=== PATIENT | female | born 2000 | race Caucasian/White ===

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

== ENCOUNTER 2018-08-31 22:28 | Emergency (ER) | payer BC, OTHER ==
[2018-09-01] MEDS ORDERED: Diazepam TAB(*) 5 MG PO ONE (00:35)
[2018-09-01] MEDS ORDERED: predniSONE TAB* 20 MG PO ONE (01:15)
--- NOTE | 2018-09-01 01:18 | ED ---
Back Pain - HPI Summary HPI Summary: Patient complains of bilateral hip pain, lower back pain with radiation down into bilateral legs 2 weeks worsening today. Denies known trauma. Pain is intermittent, worse with moving. Patient has tried Tylenol, ibuprofen, tramadol , Flexeril, meloxicam without relief of symptoms. History of chronic back pain , anxiety, depression, fibromyalgia. Denies fever, cough, sore throat, CP, SOB , N/V/D, abdominal pain, change in urine, change in BM. Patient has appointment with PCP for evaluation of these symptoms on 09/14 but could not wait. - History of Current Complaint Chief Complaint: EDHipPelvisInjury Stated Complaint: BACK/HIP/LEG PAIN, DIFFICULTY BREATHING PER PT Time Seen by Provider: 09/01/18 00:17 Hx Obtained From: Patient, Family/Law Examiner Hx Last Menstrual Period: started 3 days ago Onset/Duration: Gradual Onset, Lasting Weeks Onset/Duration: Started Weeks Ago Timing: Intermittent Severity Initially: Moderate Severity Currently: Moderate Pain Intensity: 7 Pain Scale Used: 0-10 Numeric Character: Dull, Aching, Throbbing Aggravating Symptom(s): Movement Alleviating Symptom(s): Rest, Position Associated Signs And Symptoms: Positive: Negative - Allergies/Home Medications Allergies/Adverse Reactions: Allergies Allergy/AdvReac Type Severity Reaction Status Date / Time adhesive tape Allergy See Comment Verified 12/08/17 13:02 azithromycin Allergy Hives Verified 12/08/17 13:02 [From Zithromax Z-Cooper] Penicillins Allergy Hives Verified 12/08/17 13:02 Home Medications: Home Medications Acetaminophen [Tylenol Extra Strength] 1,000 mg PO 09/01/18 [History] Ibuprofen TAB* [Advil TAB*] 800 mg PO PRN 09/01/18 [History] Pregabalin CAP(*) [Lyrica CAP(*)] 100 mg PO BID 09/01/18 [History Confirmed 07/16] PMH/Surg Hx/FS Hx/Imm Hx Endocrine/Hematology History: Denies: Hx Diabetes, Hx Thyroid Disease Cardiovascular History: Denies: Hx Hypertension, Hx Pacemaker/ICD Respiratory History: Denies: Hx Asthma, Hx Chronic Obstructive Pulmonary Disease (COPD) GI History: Denies: Hx Ulcer Sensory History: Denies: Hx Legally Blind Opthamlomology History: Denies: Hx Eye Prosthesis EENT History: Denies: Hx Deafness Neurological History: Denies: Hx Dementia Psychiatric History: Denies: Hx Panic Disorder - Surgical History Surgery Procedure, Year, and Place: T&A - Immunization History Immunizations Up to Date: Yes Infectious Disease History: No Infectious Disease History: Denies: Hx Clostridium Difficile, Hx Hepatitis, Hx Human Immunodeficiency Virus (HIV), Hx of Known/Suspected MRSA, Hx Shingles, Hx Tuberculosis, Hx Known/ Suspected VRE, Hx Known/Suspected VRSA, History Other Infectious Disease, Traveled Outside the [place] in Last 30 Days - Family History Known Family History: Positive: Cardiac Disease, Hypertension, Diabetes Family History: dyslipidemia - Social History Alcohol Use: None Substance Use Type: Reports: None Smoking Status (MU): Never Smoked Tobacco Review of Systems Constitutional: Negative Eyes: Negative ENT: Negative Cardiovascular: Negative Respiratory: Negative Gastrointestinal: Negative Genitourinary: Negative Musculoskeletal: Other Skin: Negative Neurological: Negative Psychological: Normal All Other Systems Reviewed And Are Negative: Yes Physical Exam - Summary Physical Exam Summary: Normal range of motion of bilateral lower extremities. Normal strength. PMS intact. In with palpation of lower back bilaterally. No pain with palpation of bilateral lower extremities. Triage Information Reviewed: Yes Vital Signs On Initial Exam: Initial Vitals Temp Pulse Resp BP Pulse Ox 98.8 F 70 20 120/79 98 08/31/18 22:32 08/31/18 22:32 08/31/18 22:32 08/31/18 22:32 08/31/18 22:32 Vital Signs Reviewed: Yes Appearance: Positive: Well-Appearing Skin: Positive: Warm Head/Face: Positive: Normal Head/Face Inspection Eyes: Positive: Normal Neck: Positive: Supple Respiratory/Lung Sounds: Positive: Clear to Auscultation Cardiovascular: Positive: Normal Abdomen Description: Positive: Nontender Musculoskeletal: Positive: Normal Neurological: Positive: Normal Psychiatric: Positive: Normal AVPU Assessment: Alert - Palmer Coma Scale Best Eye Response: 4 - Spontaneous Best Motor Response: 6 - Obeys Commands Best Verbal Response: 5 - Oriented Coma Scale Total: 15 Diagnostics - Vital Signs Vital Signs Temp Pulse Resp BP Pulse Ox 09/01/18 00:59 17 08/31/18 22:32 98.8 F 70 20 120/79 98 - Laboratory Lab Statement: Any lab studies that have been ordered have been reviewed, and results considered in the medical decision making process. Back Pain Course/Dx - Course Course Of Treatment: Patient complains of bilateral hip pain, lower back pain with radiation down into bilateral legs 2 weeks worsening today. Denies known trauma. Pain is intermittent, worse with moving. Patient has tried Tylenol, ibuprofen, tramadol, Flexeril, meloxicam without relief of symptoms. History of chronic back pain, anxiety, depression, fibromyalgia. Denies fever, cough, sore throat, CP, SOB, N/V/D, abdominal pain, change in urine, change in BM. Patient has appointment with PCP for evaluation of these symptoms on 09/14 but could not wait. Vital signs within normal limits. X-ray lumbar spine negative for fracture. Patient symptoms improved somewhat with Valium 5 mg by mouth. Patient given prednisone here in ED. Rx for Valium and prednisone - Diagnoses Provider Diagnoses: Sciatica Discharge - Sign-Out/Discharge Documenting (check all that apply): Patient Departure Patient Received Moderate/Deep Sedation with Procedure: No - Discharge Plan Condition: Stable Disposition: HOME Prescriptions: Diazepam TAB(*) [Valium TAB(*)] 5 mg PO TID PRN 2 Days #6 tab MDD 3 tabs PRN Reason: Pain predniSONE TAB* [Deltasone 20 MG TAB*] 40 mg PO DAILY 5 Days #10 tab Patient Education Materials: Sciatica (ED), Lower Back Exercises (ED) Referrals: Mario Hillman MD [Primary Care Provider] - Trey Leigh MD [Medical Doctor] - Additional Instructions: Take Valium as directed. Take prednisone as directed. Take ibuprofen as well. Heat may help symptoms. If symptoms do not improve within a week follow-up with orthopedics Dr. Leigh for further evaluation. - Billing Disposition and Condition Condition: STABLE Disposition: Home
[2018-09-01 02:50] VITALS: BP 122/70
== END 2018-09-01 02:49 | disposition home or self-care (01) ==
LOC: ED 22:28
DX: M54.30 Sciatica, unspecified side (principal); M54.5 Low back pain; Z88.0 Allergy status to penicillin
CPT/HCPCS: 72110; 99283; A9270-GY

== ENCOUNTER 2018-09-27 14:15 | Emergency (ER) | payer OTHER ==
[2018-09-27 14:55] VITALS: BP 124/76
--- NOTE | 2018-09-27 15:40 | UC ---
Throat Pain/Nasal Mickey HPI - HPI Summary HPI Summary: 18-year-old female presents with complaints of sore throat and left ear pain. States 2 days ago she noticed a sore at the base of the left side of her tongue. The next day she started having sore throat and left ear pain. Denies fever, chills, nasal congestion, ear drainage, dysphagia, cough, abdominal pain , nausea, or vomiting. - History of Current Complaint Chief Complaint: UCRespiratory Stated Complaint: L EAR PAIN/ST Time Seen by Provider: 09/27/18 15:15 Hx Obtained From: Patient Hx Last Menstrual Period: 3 wks ago Pain Intensity: 5 - Allergies/Home Medications Allergies/Adverse Reactions: Allergies Allergy/AdvReac Type Severity Reaction Status Date / Time adhesive tape Allergy See Comment Verified 09/27/18 14:56 azithromycin Allergy Hives Verified 09/27/18 14:56 [From Zithromax Z-Cooper] Penicillins Allergy Hives Verified 09/27/18 14:56 PMH/Surg Hx/FS Hx/Imm Hx Psychological History: Depression, Bipolar Disorder - Surgical History Surgical History: Yes Surgery Procedure, Year, and Place: T&A - Family History Known Family History: Positive: Cardiac Disease, Hypertension, Diabetes Family History: dyslipidemia - Social History Alcohol Use: None Substance Use Type: Prescribed Smoking Status (MU): Never Smoked Tobacco - Immunization History Most Recent Tetanus Shot: UTD Vaccination Up to Date: Yes Review of Systems All Other Systems Reviewed And Are Negative: Yes Constitutional: Negative: Fever, Chills Skin: Negative: Rash Eyes: Negative: Drainage, Eye Redness ENT: Positive: Sore Throat, Ear Ache. Negative: Nasal Discharge, Sinus Congestion, Sinus Pain/Tenderness Respiratory: Negative: Shortness Of Breath, Cough Cardiovascular: Positive: Negative Gastrointestinal: Negative: Abdominal Pain, Vomiting, Nausea Genitourinary: Positive: Negative Musculoskeletal: Positive: Negative Neurological: Positive: Negative Is Patient Immunocompromised?: No Physical Exam - Summary Physical Exam Summary: GENERAL APPEARANCE: Alert and cooperative, obese, young adult female who appears to be in no acute distress. EYES: Conjunctiva clear. No drainage. EARS: External auditory canals and tympanic membranes clear, hearing grossly intact. NOSE: No nasal discharge. THROAT: Mild pharyngeal erythema. Tonsils surgically absent. Uvula midline. Single aphthous ulcer noted at the base of the left side of her tongue. NECK: Neck supple, non-tender without lymphadenopathy. CARDIAC: Normal S1 and S2. No S3, S4 or murmurs. Rhythm is regular. There is no peripheral edema, cyanosis or pallor. Extremities are warm and well perfused. Capillary refill is less than 2 seconds. Peripheral pulses intact. LUNGS: Clear to auscultation without rales, rhonchi, wheezing or diminished breath sounds. ABDOMEN: Positive bowel sounds. Soft, nondistended, nontender. No guarding or rebound. No masses or hepatosplenomegally. MUSKULOSKELETAL: ROM intact to all extremities. No joint erythema or tenderness. Normal muscular development. Normal gait. SKIN: Skin normal color, texture and turgor with no lesions or eruptions. Triage Information Reviewed: Yes Vital Signs: Initial Vital Signs Temp 98.7 F 09/27/18 14:53 Pulse 55 09/27/18 14:53 Resp 18 09/27/18 14:53 BP 124/76 09/27/18 14:53 Pulse Ox 100 09/27/18 14:53 Vital Signs Reviewed: Yes Throat Pain/Nasal Course/Dx - Course Course Of Treatment: 18-year-old female presents with complaints of sore throat and left ear pain. States 2 days ago she noticed a sore at the base of the left side of her tongue. The next day she started having sore throat and left ear pain. Denies fever, chills, nasal congestion, ear drainage, dysphagia, cough, abdominal pain , nausea, or vomiting. Afebrile. Vital signs stable. Patient had mild pharyngeal erythema, tonsils were surgically absent, she had a single aphthous ulcer noted at the base of the left side of her tongue and otherwise unremarkable exam. Recommending symptomatic treatment for a viral pharyngitis. She is to follow-up with her primary care provider in 3-5 days if symptoms are not improving. Anticipatory guidance and warning symptoms reviewed with the patient. Verbalizes understanding and agrees with plan of care. - Differential Dx/Diagnosis Differential Diagnosis/HQI/PQRI: Mononucleosis, Otitis Media, Pharyngitis, Tonsillitis, URI Provider Diagnosis: Viral pharyngitis, Aphthous ulcer of tongue Discharge - Sign-Out/Discharge Documenting (check all that apply): Patient Departure All imaging exams completed and their final reports reviewed: No Studies - Discharge Plan Condition: Stable Disposition: HOME Patient Education Materials: Pharyngitis (ED), Canker Sores (ED) Referrals: Mario Hillman MD [Primary Care Provider] - 3 Days Additional Instructions: Your rapid strep test in the clinic today was negative. Your symptoms are likely from a viral infection. Viral infections do not respond to antibiotics and are limited to the treatment of symptoms. Viral infections typically run their course in 7-10 days. You were also noted to have a canker sore (aphthous ulcer) on your tongue. These will typically go away on their own after a few days. Drink plenty of fluids to avoid dehydration especially if you are running any fever. Use salt water gargles several times a day. Take over the counter acetaminophen (Tylenol) or ibuprofen (Advil, Motrin) according to directions as needed for pain or fever. You may also use Chloraseptic spray or Cepacol lonzenges according to directions which contain a numbing medication and can provide some temporary relief from your sore throat. Return here or follow up with your primary care provider in 3-5 days if symptoms persist. Seek immediate medical attention in the emergency room if you have fever greater than 100.5 F despite taking acetaminophen or ibuprofen, are unable to swallow or develop drooling, are unable to open your mouth fully, are unable to eat or drink, have pain that is not relieved with over the counter pain medication, or have any difficulty breathing, or any worsening of symptoms. - Billing Disposition and Condition Condition: STABLE Disposition: Home
== END 2018-09-27 16:17 | disposition home or self-care (01) ==
LOC: UCEAST 14:15
DX: J02.8 Acute pharyngitis due to other specified organisms (principal); K14.0 Glossitis; F32.9 Major depressive disorder, single episode, unspecified; F31.9 Bipolar disorder, unspecified; Z88.0 Allergy status to penicillin
CPT/HCPCS: 87651; 99211; G0463

== ENCOUNTER 2018-09-29 15:26 | Emergency (ER) | payer OTHER ==
[2018-09-29] MEDS ORDERED: predniSONE TAB* 20 MG PO ONE (15:54)
[2018-09-29] MEDS ORDERED: ValACYclovir (*) 1 GM TAB PO ONE (16:40)
--- NOTE | 2018-09-29 16:42 | ED ---
Neurological HPI - HPI Summary HPI Summary: A 18 y/o female presents to [facility] with a chief complaint of numbness to the left side of her face around 13:00 today. She also reports that she was unable to open and close her left eye normally. The patient says that she had a lesion in her mouth that was noticed 3-4 days ago, and she went to [facility] two days ago with a severe sore throat and an ear ache. Told she likely had a viral infection. Patient denies numbness, tingling or weakness in her extremities. - History of Current Complaint Chief Complaint: EDWeakness Stated Complaint: NUMBNESS IN FACE PER PT Hx Obtained From: Patient Hx Last Menstrual Period: 3 wks ago Onset/Duration: Sudden Onset, Started hours ago, Still Present Timing: Constant Onset Severity: Mild Current Severity: Mild Pain Intensity: 0 Pain Scale Used: 0-10 Numeric Character: Weak, Numbness/Tingling Aggravating: Nothing Alleviating: Nothing Associated Signs and Symptoms: Positive: Weakness, Numbness. Negative: Fever - Allergy/Home Medications Allergies/Adverse Reactions: Allergies Allergy/AdvReac Type Severity Reaction Status Date / Time adhesive tape Allergy See Comment Verified 09/27/18 14:56 azithromycin Allergy Hives Verified 09/27/18 14:56 [From Zithromax Z-Cooper] Penicillins Allergy Hives Verified 09/27/18 14:56 PMH/Surg Hx/FS Hx/Imm Hx Endocrine/Hematology History: Denies: Hx Diabetes, Hx Thyroid Disease Cardiovascular History: Denies: Hx Hypertension, Hx Pacemaker/ICD Respiratory History: Denies: Hx Asthma, Hx Chronic Obstructive Pulmonary Disease (COPD) GI History: Denies: Hx Ulcer Sensory History: Denies: Hx Eye Prosthesis, Hx Legally Blind, Hx Deafness Opthamlomology History: Denies: Hx Eye Prosthesis, Hx Legally Blind Neurological History: Denies: Hx Dementia Psychiatric History: Denies: Hx Panic Disorder - Surgical History Surgery Procedure, Year, and Place: T&A - Immunization History Immunizations Up to Date: Yes Infectious Disease History: No Infectious Disease History: Denies: Hx Clostridium Difficile, Hx Hepatitis, Hx Human Immunodeficiency Virus (HIV), Hx of Known/Suspected MRSA, Hx Shingles, Hx Tuberculosis, Hx Known/ Suspected VRE, Hx Known/Suspected VRSA, History Other Infectious Disease, Traveled Outside the [place] in Last 30 Days - Family History Known Family History: Positive: Cardiac Disease, Hypertension, Diabetes Family History: dyslipidemia - Social History Alcohol Use: None Substance Use Type: Reports: None Smoking Status (MU): Never Smoked Tobacco Review of Systems Negative: Fever 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 (-) Distressed Skin: Warm, Dry HENT: Normocephalic; Atraumatic. Small ulceration in the mucosa of the left cheek Eyes: Conjunctiva normal Neck: Musculoskeletal ROM normal neck. (-) JVD, (-) Nuchal rigidity Cardio: Rhythm regular, rate normal, Heart sounds normal; Intact distal pulses; Radial pulses are 2+ and symmetric. (-) Murmur Pulmonary/Chest wall: Effort normal. (-) Respiratory distress, (-) Wheezes, (-) Rales Abd: Soft. (-) Tenderness, (-) Distension, (-) Guarding, (-) Rebound Musculoskeletal: (-) Edema Lymph: (-) Cervical adenopathy Neuro: Alert, PERRL, Oriented x3, Strength normal, complete left sided cranial nerve VII paralysis. SILT, Strength 5/5 BUE and BLE, (-) Dysmetria, (-) Nystagmus, ambulates w steady gait. Psych: Mood and affect Normal Triage Information Reviewed: Yes Vital Signs On Initial Exam: Initial Vitals Temp Pulse Resp BP Pulse Ox 98.2 F 72 18 144/85 100 09/29/18 15:28 09/29/18 15:28 09/29/18 15:28 09/29/18 15:28 09/29/18 15:28 Vital Signs Reviewed: Yes Diagnostics - Vital Signs Vital Signs Temp Pulse Resp BP Pulse Ox 09/29/18 16:00 83 97 09/29/18 15:52 89 119/68 97 09/29/18 15:50 85 98 09/29/18 15:28 98.2 F 72 18 144/85 100 - Laboratory Lab Statement: Any lab studies that have been ordered have been reviewed, and results considered in the medical decision making process. Course/Dx - Course Course Of Treatment: 18-year-old who presents with numbness and paralysis of the left side of her face. 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 Complete left-sided facial weakness, with weakness of the platysmas. Suspect secondary to HSV given reported lesion in mouth. treat with prednisone 50mg daily for 1 week, and Valtrex 3 times a day for 1 week. Advised to use eye patch at night and lubricating eyedrops. Patient to follow up with neurology in 6-8 weeks if she has persistent symptoms - Diagnoses Provider Diagnoses: Molina's palsy, HSV (herpes simplex virus) infection Discharge - Sign-Out/Discharge Documenting (check all that apply): Patient Departure - DC Patient Received Moderate/Deep Sedation with Procedure: No - Discharge Plan Condition: Stable Disposition: HOME Prescriptions: predniSONE TAB* [Deltasone TAB*] 50 mg PO DAILY 6 Days #6 tab ValACYclovir (*) [Valtrex 1 GM(*)] 1 gm PO TID 7 Days #21 tab Patient Education Materials: Molina Palsy (ED) Referrals: Mario Hillman MD [Primary Care Provider] - Juan Alberto Waldrop MD [Medical Doctor] - (6-8 weeks) Additional Instructions: You were seen in the emergency department for left sided facial weakness. Her exam is consistent with Molina's palsy. Please take prednisone daily for 7 days total and got one dose here. Please take Valtrex 3 times a day for 7 days. Follow-up with neurology and 6-8 weeks if persistent symptoms Please one eye patch at night to help with dry, you can also use artificial tears or lubricant in her left eye If any studies were not completed at the time of discharge you will be called with the relevant results. Please follow up with your primary care doctor in next 2-3 days and return to emergency department for worsening or concerning symptoms. - Billing Disposition and Condition Condition: STABLE Disposition: Home - Attestation Statements Document Initiated by [place]: Yes Documenting Scribe: Ever Mishra Provider For Whom Tato is Documenting (Include Credential): Jenni Hernández MD Scribe Attestation: Ever Thomas scribed for Jenni Hernández MD on 09/29/18 at 1925. Scribe Documentation Reviewed: Yes Provider Attestation: The documentation as recorded by the Ever weiss accurately reflects the service I personally performed and the decisions made by me, Jenni Hernández MD Status of Tato Document: Viewed
[2018-09-29 17:23] VITALS: BP 142/83
== END 2018-09-29 17:22 | disposition home or self-care (01) ==
LOC: ED 15:26
DX: G51.0 Bell's palsy (principal); B00.1 Herpesviral vesicular dermatitis; Z88.0 Allergy status to penicillin; Z88.1 Allergy status to other antibiotic agents
CPT/HCPCS: 99283; A9270-GY; J7512

== ENCOUNTER 2019-03-31 23:03 | Emergency (ER) | payer SELFPAY ==
--- NOTE | 2019-04-01 00:21 | ED ---
Upper Extremity Pain - HPI Summary HPI Summary: Patient complains of pain to right wrist after hearing it pop while scooping ice cream. 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 Denies any other pain, injury or symptoms. - History of Current Complaint Chief Complaint: EDExtremityLower Stated Complaint: RIGHT ARM INJURY Time Seen by Provider: 03/31/19 23:46 Hx Obtained From: Patient Hx Last Menstrual Period: 3 wks ago Mechanism Of Injury: Other Onset/Duration: Started Hours Ago Timing: Constant Severity Initially: Moderate Severity Currently: Moderate Pain Location: Wrist Character: Aching, Throbbing Aggravating Factor(s): Movement, Internal/External Rotation Alleviating Factor(s): Rest Associated Signs & Symptoms: Positive: Negative - Allergies/Home Medications Allergies/Adverse Reactions: Allergies Allergy/AdvReac Type Severity Reaction Status Date / Time adhesive tape Allergy See Comment Verified 09/27/18 14:56 azithromycin Allergy Hives Verified 09/27/18 14:56 [From Zithromax Z-Cooper] Penicillins Allergy Hives Verified 09/27/18 14:56 PMH/Surg Hx/FS Hx/Imm Hx Endocrine/Hematology History: Denies: Hx Diabetes, Hx Thyroid Disease Cardiovascular History: Denies: Hx Hypertension, Hx Pacemaker/ICD Respiratory History: Denies: Hx Asthma, Hx Chronic Obstructive Pulmonary Disease (COPD) GI History: Denies: Hx Ulcer History: Denies: Hx Dialysis Sensory History: Denies: Hx Eye Prosthesis, Hx Legally Blind, Hx Deafness Opthamlomology History: Denies: Hx Eye Prosthesis, Hx Legally Blind Neurological History: Denies: Hx Dementia Psychiatric History: Denies: Hx Panic Disorder - Surgical History Surgery Procedure, Year, and Place: T&A Infectious Disease History: No Infectious Disease History: Denies: Hx Clostridium Difficile, Hx Hepatitis, Hx Human Immunodeficiency Virus (HIV), Hx of Known/Suspected MRSA, Hx Shingles, Hx Tuberculosis, Hx Known/ Suspected VRE, Hx Known/Suspected VRSA, History Other Infectious Disease, Traveled Outside the [place] in Last 30 Days - Family History Known Family History: Positive: Cardiac Disease, Hypertension, Diabetes Family History: dyslipidemia - Social History Alcohol Use: None Substance Use Type: Reports: None Smoking Status (MU): Never Smoked Tobacco Review of Systems Constitutional: Negative Eyes: Negative ENT: Negative Cardiovascular: Negative Respiratory: Negative Gastrointestinal: Negative Genitourinary: Negative Musculoskeletal: Other Skin: Negative Neurological: Negative Psychological: Normal All Other Systems Reviewed And Are Negative: Yes Physical Exam - Summary Physical Exam Summary: No swelling, erythema, ecchymosis, deformity noted to right wrist. 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 PMS intact distally. No snuffbox tenderness. Triage Information Reviewed: Yes Vital Signs On Initial Exam: Initial Vitals Temp Pulse Resp BP Pulse Ox 98 F 79 18 144/84 99 03/31/19 23:05 03/31/19 23:05 03/31/19 23:05 03/31/19 23:05 03/31/19 23:05 Vital Signs Reviewed: Yes Appearance: Positive: Well-Appearing Skin: Positive: Warm Head/Face: Positive: Normal Head/Face Inspection Neck: Positive: Supple Respiratory/Lung Sounds: Positive: Clear to Auscultation Cardiovascular: Positive: Normal Abdomen Description: Positive: Nontender Musculoskeletal: Positive: Normal Neurological: Positive: Normal Psychiatric: Positive: Normal AVPU Assessment: Alert - [place] Coma Scale Best Eye Response: 4 - Spontaneous Best Motor Response: 6 - Obeys Commands Best Verbal Response: 5 - Oriented Coma Scale Total: 15 Procedures - Sedation Patient Received Moderate/Deep Sedation with Procedure: No - Splinting 1 Location: right wrist Pre-Made Type: velcro Splint: wrist Pre-Proc Neuro Vasc Exam: normal Post-Proc Neuro Vasc Exam: normal Diagnostics - Vital Signs Vital Signs Temp Pulse Resp BP Pulse Ox 03/31/19 23:05 98 F 79 18 144/84 99 - Laboratory Lab Statement: Any lab studies that have been ordered have been reviewed, and results considered in the medical decision making process. 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 Denies any other pain, injury or symptoms. Vital signs within normal limits. X-ray right wrist negative. Patient placed in Velcro splint by this provider. - Diagnoses Provider Diagnoses: Strain of wrist, right Discharge ED - Sign-Out/Discharge Documenting (check all that apply): Patient Departure - Discharge Plan Condition: Stable Disposition: HOME Patient Education Materials: Wrist Sprain (ED) Referrals: Mario Hillman MD [Primary Care Provider] - Additional Instructions: Alternate ibuprofen 600 mg with Tylenol 650 mg every 3 hours for pain and inflammation. Ice 15 minutes at a time. Wear brace. Symptoms do not improve in one week follow-up with orthopedics Dr. Spencer for further evaluation. - Billing Disposition and Condition Condition: STABLE Disposition: Home
[2019-04-01 00:40] VITALS: BP 144/74
== END 2019-04-01 00:39 | disposition home or self-care (01) ==
LOC: ED 23:03
DX: S66.911A Strain of unspecified muscle, fascia and tendon at wrist and hand level, right hand, initial encounter (principal); X50.3XXA Overexertion from repetitive movements, initial encounter; Y92.9 Unspecified place or not applicable; Z88.0 Allergy status to penicillin; Z88.1 Allergy status to other antibiotic agents
CPT/HCPCS: 99282